=== PATIENT | female | born 1975 | race Two or more races ===

== ENCOUNTER 2020-02-27 11:42 | Emergency (ER) | payer MEDICAID ==
[~2020-02-27] VITALS: Ht 157.5 cm; Wt 50.0 kg
[2020-02-27] MEDS ORDERED: ACETAMINOPHEN 325MG TABLET PO PRN (13:15)
[2020-02-27 13:28] LABS: BASOPHILS % 0.8 % (0.0-2.0); CHLORIDE 109 mEq/L (98-107); CLARITY URINE CLEAR (CLEAR); COLOR URINE YELLOW (YELLOW); EOSINOPHILS % 1.5 % (0.0-5.0); HEMATOCRIT. 37.8 % (36.0-48.0); HEMOGLOBIN. 12.6 g/dL (12.0-16.0); KETONES URINE NEGATIVE (NEGATIVE); LEUKOCYTE ESTERASE URINE NEGATIVE (NEGATIVE); MEAN CORPUSCULAR HEMOGLOBIN 31.7 pg (28.0-32.0); MEAN CORPUSCULAR VOLUME 95.1 fL (81.0-99.0); MEAN PLATELET VOLUME 7.9 fl (7.4-10.4); MONOCYTES % 8.7 % (2.0-8.0); NITRITE URINE NEGATIVE (NEGATIVE); OCCULT BLOOD URINE TRACE (NEGATIVE); PLATELET 266 x1000/uL (130-400); PROTEIN URINE NEGATIVE (NEGATIVE); RED BLOOD CELL COUNT 3.97 mill/uL (4.2-5.4); RED CELL DISTRIBUTION WIDTH 13.8 % (11.6-14.6); SPECIFIC GRAVITY URINE 1.014 (1.005-1.030); UROBILINOGEN URINE 0.2 E.U./dL (0.2-1.0)
[2020-02-27 13:39] LABS: B-HCG QUANTITATIVE < 1 mIU/mL (<3)
[2020-02-27] MEDS ORDERED: IOHEXOL-300 100 ML BOTTLE ONE (14:34)
[2020-02-27 15:27] VITALS: BP 109/62
== END 2020-02-27 15:56 | disposition home or self-care (01) ==
LOC: ER 11:42
DX: O34.81 Maternal care for other abnormalities of pelvic organs, first trimester (principal); N83.201 Unspecified ovarian cyst, right side; O34.11 Maternal care for benign tumor of corpus uteri, first trimester; O26.891 Other specified pregnancy related conditions, first trimester; R10.31 Right lower quadrant pain; O99.511 Diseases of the respiratory system complicating pregnancy, first trimester; J45.909 Unspecified asthma, uncomplicated; O99.011 Anemia complicating pregnancy, first trimester; Z3A.01 Less than 8 weeks gestation of pregnancy; Z98.51 Tubal ligation status; Z98.890 Other specified postprocedural states
CPT/HCPCS: 36415; 74177; 76830; 76856; 80053; 81003; 81025; 84702; 85025; 86850; 86900; 86901; 99285; Q9967

== ENCOUNTER 2020-11-27 14:34 | Emergency (ER) | payer MEDICAID ==
[~2020-11-27] VITALS: Ht 157.5 cm; Wt 48.0 kg
[2020-11-27 14:45] VITALS: BP 139/91
== END 2020-11-27 15:22 | disposition home or self-care (01) ==
LOC: ER 14:34
DX: J44.9 Chronic obstructive pulmonary disease, unspecified (principal); I10 Essential (primary) hypertension; F12.10 Cannabis abuse, uncomplicated; Z87.891 Personal history of nicotine dependence; Z76.0 Encounter for issue of repeat prescription
CPT/HCPCS: 99281; 99283

== ENCOUNTER 2020-12-28 17:10 | Emergency (ER) | payer MEDICAID ==
[~2020-12-28] VITALS: Ht 157.5 cm; Wt 45.0 kg
[2020-12-28 17:59] VITALS: BP 116/89
== END 2020-12-28 18:00 | disposition home or self-care (01) ==
LOC: ER 17:10
DX: Z76.0 Encounter for issue of repeat prescription (principal); J44.9 Chronic obstructive pulmonary disease, unspecified; J45.909 Unspecified asthma, uncomplicated; Z71.89 Other specified counseling; Z79.51 Long term (current) use of inhaled steroids
CPT/HCPCS: 99283

== ENCOUNTER 2021-01-15 10:59 | Emergency (ER) | payer MEDICAID ==
[~2021-01-15] VITALS: Ht 157.5 cm; Wt 44.0 kg
[2021-01-15 11:08] VITALS: BP 142/85
== END 2021-01-15 12:06 | disposition home or self-care (01) ==
LOC: ER 10:59
DX: R06.02 Shortness of breath (principal); J44.9 Chronic obstructive pulmonary disease, unspecified; I10 Essential (primary) hypertension; F12.10 Cannabis abuse, uncomplicated; Z88.8 Allergy status to other drugs, medicaments and biological substances; Z98.51 Tubal ligation status; Z76.0 Encounter for issue of repeat prescription
CPT/HCPCS: 99281; 99283

== ENCOUNTER 2023-01-22 15:15 | Emergency (ER) | payer MEDICAID ==
[~2023-01-22] VITALS: Ht 165.1 cm; Wt 60.0 kg
[2023-01-22 15:27] VITALS: BP 96/61
== END 2023-01-23 06:59 | disposition left against medical advice (07) ==
LOC: ER 15:35
DX: Z53.21 Procedure and treatment not carried out due to patient leaving prior to being seen by health care provider (principal); H92.03 Otalgia, bilateral
CPT/HCPCS: 99281

== ENCOUNTER 2023-10-02 22:48 | Emergency (ER) | payer MEDICAID ==
[~2023-10-02] VITALS: Ht 157.5 cm; Wt 65.0 kg
[2023-10-02 22:50] VITALS: TEMP 98.3
[2023-10-02] MEDS: METHYLPREDNISOLONE SOD SUCC 125MG/2ML (ACT-O-VIAL) IV STA (23:07)
[2023-10-02] MEDS ORDERED: ALBUTEROL (0.083%) 2.5MG/3ML NEB HHN STA (23:07)
[2023-10-02 23:30] VITALS: PULSE 88; RESP 20; O2SAT 99
[2023-10-02 23:38] LABS: BASOPHILS % 0.8 % (0.0-2.0); EOSINOPHILS % 5.7 % (0.0-5.0); HEMATOCRIT. 49.9 % (36.0-48.0); HEMOGLOBIN. 16.4 g/dL (12.0-16.0); LYMPHOCYTES % 17.9 % (20.0-50.0); MEAN CORPUSCULAR HEMOGLOBIN 32.1 pg (28.0-32.0); MEAN CORPUSCULAR HGB CONC 32.9 g/dL (31.0-37.0); MEAN CORPUSCULAR VOLUME 97.4 fL (81.0-99.0); MEAN PLATELET VOLUME 8.3 fl (7.4-10.4); MONOCYTES % 10.5 % (2.0-8.0); NEUTROPHILS % 65.1 % (40.0-76.0); PLATELET 222 x1000/uL (130-400); RED BLOOD CELL COUNT 5.12 mill/uL (4.2-5.4); RED CELL DISTRIBUTION WIDTH 14.1 % (11.6-14.6); WHITE BLOOD COUNT 8.9 x1000/uL (4.5-11.0)
[2023-10-02 23:47] LABS: CHLORIDE 108 mEq/L (98-107); INDEX HEMOLYSI 1 (1-3); INDEX ICTERIC 1 (1-4); INDEX LIPEMIC 1 (1-3); POTASSIUM 3.4 mEq/L (3.5-5.1); SODIUM 139 mEq/L (136-145)
[2023-10-02 23:57] LABS: ALANINE AMINOTRANSFERASE 35 IU/L (13-61); ALBUMIN 3.5 g/dL (3.4-5.0); ASPARTATE AMINOTRANSFERASE 20 IU/L (15-37); BILIRUBIN TOTAL 0.3 mg/dL (0.1-1.0); CALCIUM 8.2 mg/dL (8.5-10.1); CARBON DIOXIDE 26 mEq/L (21-32); CREATININE 0.6 mg/dL (0.6-1.3); GLUCOSE 104 mg/dL (70-105); NT PRO B-TYPE NATRIURETIC PEP 49 pg/mL (5-125); PROTEIN TOTAL 7.4 g/dL (6.0-8.3); TROPONIN I HIGH SENSITIVITY 4 ng/L (<54); UREA NITROGEN BLOOD 11 mg/dL (7-21)
[2023-10-03] MEDS ORDERED: METHYLPREDNISOLONE SOD SUCC 125MG/2ML (ACT-O-VIAL) IV NR (01:15)
[2023-10-03] MEDS: METHYLPREDNISOLONE SOD SUCC 125MG/2ML (ACT-O-VIAL) IV STA (01:22)
[2023-10-03] MEDS ORDERED: P20 MT (03:27)
[2023-10-03] MEDS ORDERED: ALBU6.7H15 INH (03:27)
[2023-10-03] MEDS ORDERED: SODIUM CHLORIDE 0.9% 1,000 ML IV ONE (04:00)
[2023-10-03 06:42] VITALS: BP 96/64; PULSE 98; RESP 20
== END 2023-10-03 07:21 | disposition left against medical advice (07) ==
LOC: ER 22:48
DX: J44.1 Chronic obstructive pulmonary disease with (acute) exacerbation (principal); I10 Essential (primary) hypertension; Z87.891 Personal history of nicotine dependence; F12.10 Cannabis abuse, uncomplicated
CPT/HCPCS: 80053; 83880; 85025; 84484; 36415; 71045; 94640; 93005; 99285; 96361; 96374; Z7610 ×3; J2930; J7030